=== PATIENT | female | born 1960 | race Caucasian/White ===

== ENCOUNTER → 2016-12-28 | Outpatient (CLI) | payer OTHER ==
[~2016-12-28] MED LIST: AMOXICILLIN500 MG PO; CIPRODEX 0.3%-7.5 ML OT; DIFLUCAN150 MG PO; FLEXERIL5 MG PO; MOTRIN800 MG PO; NAPROSYN500 MG PO; NO DAILY MEDS; PREDNISONE20 M1 PO; PROVENTIL0.09 MG/A1 INH; ROBAXIN750 MG PO; TRAMADOL HCL50 MG PO; TRIMOX500 MG PO; XANAX0.5 MG PO
== END | disposition home or self-care (01) ==
LOC: MAMMO 12-21 08:30
DX: Z12.31 Encounter for screening mammogram for malignant neoplasm of breast (principal)

== ENCOUNTER 2017-01-14 18:17 | Emergency (ER) | payer OTHER ==
[~2017-01-14] VITALS: Wt 77.1 kg
[2017-01-14] MEDS ORDERED: ALPRAZOLAM0.5 M3 PO (18:22)
[2017-01-14 18:53] LABS: BASO # 0.1 10*3/uL (0.0-0.1); BASO % 1.1 % (0.0-1.0); EOS # 0.5 10*3/uL (0.0-0.4); EOS % 4.8 % (1.0-4.0); HEMATOCRIT 37.8 % (37.0-47.0); HEMOGLOBIN 12.6 g/dl (12.0-16.0); LYMPH # 3.8 10*3/uL (1.3-4.4); LYMPH % 39.1 % (27.0-41.0); MEAN CELL VOLUME 90.6 fl (81.0-99.0); MEAN CORPUSCULAR HGB 30.2 pg (27.0-31.0); MEAN CORPUSCULAR HGB CONC 33.3 g/dl (33.0-37.0); MEAN PLATELET VOLUME 9.4 fl (9.6-12.3); MONO # 0.9 10*3/uL (0.1-1.0); MONO % 8.8 % (3.0-9.0); NEUT # 4.4 10*3/uL (2.3-7.9); NEUT % 45.8 % (47.0-73.0); PLATELET COUNT AUTOMATED 280 10*3/uL (130-400); RED BLOOD COUNT 4.17 10*6/uL (4.10-5.10); RED CELL DISTRI WIDTH 12.3 % (0-14.5); WHITE BLOOD COUNT 9.7 10*3/uL (4.8-10.8)
[2017-01-14 19:10] LABS: ALBUMIN 3.5 gm/dl (3.1-4.5); ALKALINE PHOSPHATASE 105 U/L (45-117); BILIRUBIN, TOTAL 0.2 mg/dl (0.2-1.0); BUN 19 mg/dl (7-24); CARBON DIOXIDE 22 mmol/L (21-32); CHLORIDE 110 mmol/L (98-107); EST GLOM FILT AFRICAN AMERICAN > 60 ml/min; GLUCOSE 151 mg/dL (65-99); POTASSIUM 3.5 mmol/L (3.5-5.1); SGOT/AST 18 IU/L (3-35); SGPT/ALT 24 U/L (12-78); SODIUM 145 mmol/L (136-145); TOTAL PROTEIN 6.9 gm/dL (6.4-8.2)
== END 2017-01-14 19:55 | disposition home or self-care (01) ==
LOC: ED 18:17
PROVIDERS: Emergency Medicine
DX: J06.9 Acute upper respiratory infection, unspecified (principal); F17.200 Nicotine dependence, unspecified, uncomplicated; Z79.899 Other long term (current) drug therapy

== ENCOUNTER 2018-03-29 06:54 | Emergency (ER) | payer OTHER ==
[~2018-03-29] VITALS: Ht 157.4 cm; Wt 74.8 kg
[~2018-03-29 06:54] MED LIST changes: +ALPRAZOLAM0.5 M3 PO
[2018-03-29] MEDS ORDERED: Motrin,Rufen800 MG PO (09:04)
== END 2018-03-29 09:03 | disposition home or self-care (01) ==
LOC: ED 06:54
DX: S63.602A Unspecified sprain of left thumb, initial encounter (principal); Z79.899 Other long term (current) drug therapy; Z90.49 Acquired absence of other specified parts of digestive tract; W01.0XXA Fall on same level from slipping, tripping and stumbling without subsequent striking against object, initial encounter; Y93.F9 Activity, other caregiving; Y92.095 Swimming-pool of other non-institutional residence as the place of occurrence of the external cause; Y99.8 Other external cause status

== ENCOUNTER 2018-06-24 18:01 | Emergency (ER) | payer OTHER ==
[~2018-06-24] VITALS: Ht 157.4 cm; Wt 77.1 kg
[~2018-06-24 18:01] MED LIST changes: +Motrin,Rufen800 MG PO
[2018-06-24] MEDS ORDERED: NORCO 5-325 TA1 EACH PO (18:24)
[2018-06-24] MEDS ORDERED: SILVADENE,SSD C50 GM T (18:24)
== END 2018-06-24 18:44 | disposition home or self-care (01) ==
LOC: ED 18:01
DX: T24.121A Burn of first degree of right knee, initial encounter (principal); T25.121A Burn of first degree of right foot, initial encounter; T25.122A Burn of first degree of left foot, initial encounter; F17.200 Nicotine dependence, unspecified, uncomplicated; Z79.899 Other long term (current) drug therapy; X12.XXXA Contact with other hot fluids, initial encounter; Y93.89 Activity, other specified; Y92.89 Other specified places as the place of occurrence of the external cause; Y99.8 Other external cause status

== ENCOUNTER 2018-10-25 07:02 | Inpatient (IN) | payer BC ==
[~2018-10-25] VITALS: Ht 157.5 cm; Wt 78.7 kg
--- NOTE | ~2018-10-25 | O ---
[place], [place] OPERATIVE NOTE NAME: JUDD VIGIL UNIT #: [id number] ROOM: 407 DOCTOR: IDA BOSTON,BENITO BIRTHDATE: [birth year] DOS: 10/26/2018 INDICATION: The patient has presented with abdominal pain, cramps, diarrhea, blood clots in the stool. PROCEDURE: Today's procedure part of investigation is colonoscopy plus biopsy. PREMEDICATION: Propofol. SCOPE: Olympus folding colonoscope 10L video. REPORT: After putting the patient in left lateral position, application of lubricant to the rectal pouch. Scope was introduced and advanced through the length of colon and transverse colon was approached moderate ischemic colitis was throughout the length of the transverse colon identified, photographed and biopsied of the mid ascending colon investigated. Air was suctioned out. The patient was extubated, tolerated the procedure well. IMPRESSION: Diverticulosis, ischemic colitis of moderate degree and transverse colon. PLAN AND DISCUSSION: Flagyl 500 mg IV t.i.d. will suffice Advised on abstaining from smoking, full liquid diet, clinical reassessment. BENITO PRIETO MD CM:OPRECORD:OPERATIVE NOTE [id number] BENITO PRIETO MD 10/31/18 1303 interface
--- NOTE | ~2018-10-25 | CON ---
[place], [place] REPORT OF CONSULTATION NAME: JUDD VIGIL UNIT #: [id number] ROOM: 407 DOCTOR: BENITO PRIETO MD BIRTHDATE: [birth year] DOS: HISTORY OF PRESENT ILLNESS: This is a 58-year-old patient who was presented with abdominal pain, cramp, sudden in nature, was admitted with noticing multiple bowel movements, which was associated with gross blood and clots. Lactic acid was 2.0. White blood cell was 15, H and H of [address] scan of the abdomen and pelvis was done. Colitis involving transverse colon was reported. Comprehensive metabolic panel, electrolyte, liver function tests all within normal limits. CBC differential continued to be reviewed. White blood cell elevated to 17. Urine cultures were not positive. PAST MEDICAL HISTORY: Anxiety, borderline obesity. PAST SURGICAL HISTORY: Appendectomy. SOCIAL HISTORY: Smoker, nonalcohol consumer. She initially has confessed to the interview she takes 4 cigarettes per day, but subsequently agreeing to me that she is at least taken a pack of cigarettes per day. FAMILY HISTORY: Noncontributory. ALLERGIES: No known medications. MEDICATIONS: Atarax and alprazolam. REVIEW OF SYSTEMS: In general: HEENT: Denies double vision, blurred vision. RESPIRATORY: Denies shortness of breath. CARDIOVASCULAR: Denies chest pain. DIGESTIVE SYSTEM: Blood per PM. PHYSICAL EXAMINATION: VITAL SIGNS: Stable. HEENT: Benign. Edentulous. Mouth free of aphthae ulcer, thrush. NECK: Supple, no thyromegaly, no cervical lymphadenopathy. CHEST: Symmetric anatomy, COPD pattern. HEART: Normal sinus rhythm, no gallop, no murmur. ABDOMEN: Soft. No hepato-organomegaly. Bowel sounds present. No pulsatile mass. EXTREMITIES: No cyanosis, no pedal edema. NEUROLOGIC: Alert, oriented to time, place, person. IMPRESSION: Lower gastrointestinal bleed, abdominal pain, cramp, blood in the stool, ruling out ischemic colitis. Other adjunctive diagnoses as outlined above. PLAN: Colonoscopy today. [place], [place] REPORT OF CONSULTATION NAME: JUDD VIGIL UNIT #: [id number] ROOM: 407 DOCTOR: JABENITO ZAMORA MD BIRTHDATE: [birth year] BENITO PRIETO MD CM:CONSTR:REPORT OF CONSULTATION 1646 10/27/18 0427 interface
[~2018-10-25 07:02] MED LIST changes: +NORCO 5-325 TA1 EACH PO; +SILVADENE,SSD C50 GM T
[2018-10-25 07:04] VITALS: BP 174/89
[2018-10-25 07:43] LABS: BASO # 0.1 10*3/uL (0.0-0.1); BASO % 0.8 % (0.0-1.0); EOS % 0.3 % (1.0-4.0); HEMATOCRIT 42.1 % (37.0-47.0); HEMOGLOBIN 14.3 g/dl (12.0-16.0); LYMPH # 2.3 10*3/uL (1.3-4.4); LYMPH % 15.3 % (27.0-41.0); MEAN CELL VOLUME 89.6 fl (81.0-99.0); MEAN CORPUSCULAR HGB 30.4 pg (27.0-31.0); MEAN PLATELET VOLUME 9.7 fl (9.6-12.3); MONO # 0.8 10*3/uL (0.1-1.0); MONO % 5.1 % (3.0-9.0); NEUT # 11.9 10*3/uL (2.3-7.9); NEUT % 78.1 % (47.0-73.0); PLATELET COUNT AUTOMATED 338 10*3/uL (130-400); RED CELL DISTRI WIDTH 12.3 % (0-14.5); WHITE BLOOD COUNT 15.2 10*3/uL (4.8-10.8)
[2018-10-25 07:46] LABS: BILIRUBIN NEGATIVE (NEGATIVE); BLOOD 2+ (NEGATIVE); CLARITY CLEAR (CLEAR); COLOR YELLOW (YELLOW); GLUCOSE NEGATIVE (NEGATIVE); KETONE NEGATIVE (NEGATIVE); LEUKO ESTERASE NEGATIVE (NEGATIVE); NITRITE NEGATIVE (NEGATIVE); SPECIFIC GRAVITY 1.015 (1.005-1.030); UROBILINOGEN 0.2 E.U./dl (0.2-1.0)
[2018-10-25 07:52] LABS: ACT PARTIAL THROMBO TIME 26.1 SECONDS (20.8-31.5); INTERNATIONAL NORM RATIO 0.9 (2.0-3.5)
[2018-10-25 07:55] LABS: RBC 21-30 rbc/hpf (0-2)
[2018-10-25 07:59] LABS: ALBUMIN 3.7 gm/dl (3.1-4.5); ALKALINE PHOSPHATASE 100 U/L (45-117); BUN 15 mg/dl (7-24); CHLORIDE 108 mmol/L (98-107); CREATININE 0.73 mg/dL (0.55-1.02); LIPASE 39 U/L (73-393); POTASSIUM 3.9 mmol/L (3.5-5.1); SGOT/AST 15 IU/L (3-35); SGPT/ALT 33 U/L (12-78); SODIUM 139 mmol/L (136-145); TOTAL PROTEIN 7.8 gm/dL (6.4-8.2)
[2018-10-25 10:05] VITALS: BP 156/85
--- NOTE | 2018-10-25 10:05 | NUR ---
Time: 1004 A 58 year old FEMALE admitted to under services of DR. ISAEL BRAUN FACGAVIN WALTERS MD,[place]. Pt. arrived via wheel chair from ER. Chief complaint: BLOODY DIARRHEA, COLITIS. XENA GRAHAM
[2018-10-25] MEDS ORDERED: ATARAX,VISTARIL50 MG PO (11:27)
--- NOTE | 2018-10-25 11:27 | NUR ---
MED REC UP TO DATE AT THIS TIME WITH PATIENT AND PHARMACY. DR. COLETTE PIPER.
[2018-10-25 12:00] VITALS: BP 156/85
[2018-10-25 16:00] VITALS: BP 140/71
--- NOTE | 2018-10-25 18:05 | NUR ---
PATIENT MEDICATED WITH MORPHINE AT THIS TIME FOR COMPLAINTS OF ABDOMINAL PAIN. WILL MONITOR FOR EFFECTIVENESS.
[2018-10-25 20:00] VITALS: BP 149/74
[2018-10-26] VITALS (9 sets, daily range): BP systolic 126–168; BP diastolic 61–84
[2018-10-26 06:39] LABS: ALBUMIN 3.5 gm/dl (3.1-4.5); ALKALINE PHOSPHATASE 90 U/L (45-117); BUN 8 mg/dl (7-24); CHLORIDE 106 mmol/L (98-107); CHOLESTEROL 199 mg/dL (<200); CREATININE 0.69 mg/dL (0.55-1.02); FREE T4 1.09 ng/dl (0.76-1.46); HDL CHOLESTEROL 49 mg/dl (40-60); LDL CHOLESTEROL 125 mg/dL (9-159); PHOSPHOROUS 3.2 mg/dL (2.5-4.9); POTASSIUM 3.8 mmol/L (3.5-5.1); SGOT/AST 15 IU/L (3-35); SGPT/ALT 26 U/L (12-78); SODIUM 138 mmol/L (136-145); TOTAL PROTEIN 7.3 gm/dL (6.4-8.2); TRIGLYCERIDES 126 mg/dl (<150); VLDL CHOLESTEROL 25 mg/dL (6-40)
[2018-10-26 06:57] LABS: ACT PARTIAL THROMBO TIME 26.2 SECONDS (20.8-31.5); INTERNATIONAL NORM RATIO 0.9 (2.0-3.5)
[2018-10-26 07:00] LABS: BASO # 0.1 10*3/uL (0.0-0.1); BASO % 0.7 % (0.0-1.0); EOS # 0.1 10*3/uL (0.0-0.4); EOS % 0.8 % (1.0-4.0); HEMATOCRIT 41.2 % (37.0-47.0); HEMOGLOBIN 13.9 g/dl (12.0-16.0); LYMPH # 4.5 10*3/uL (1.3-4.4); LYMPH % 25.4 % (27.0-41.0); MEAN CELL VOLUME 91.2 fl (81.0-99.0); MEAN CORPUSCULAR HGB 30.8 pg (27.0-31.0); MEAN CORPUSCULAR HGB CONC 33.7 g/dl (33.0-37.0); MEAN PLATELET VOLUME 10.4 fl (9.6-12.3); MONO # 1.2 10*3/uL (0.1-1.0); MONO % 6.9 % (3.0-9.0); NEUT # 11.6 10*3/uL (2.3-7.9); NEUT % 65.7 % (47.0-73.0); PLATELET COUNT AUTOMATED 340 10*3/uL (130-400); RED BLOOD COUNT 4.52 10*6/uL (4.10-5.10); RED CELL DISTRI WIDTH 12.4 % (0-14.5); WHITE BLOOD COUNT 17.7 10*3/uL (4.8-10.8)
[2018-10-26 07:39] LABS: VITAMIN D, 25-HYDROXY 12.7 ng/mL (30-100)
--- NOTE | 2018-10-26 08:24 | NUR ---
PHYSICIAN WAS NOTIFIED OF DR. PRIETO CONSULT. RESPONSE OF NOTIFICATION WAS GIVE ENEMA TODAY AT 1100 FOR COLONOSCOPY TODAY. TRACEY MCWILLIAMS
--- NOTE | 2018-10-26 09:00 | NUR ---
[employer] Supervisor in to talk to patient. Patient states lives at home with family. There are few steps in the home. Physician: jayan sosa [facility] Home health services: none Patient's level of ADLs: INDEPENDENT Patient has working utilities: all working DME: none Follow-up physician's appointment after d/c: will be made by hospitalist nurse director upon discharge Does patient want to access PORTAL?: no Discharge plan discussed with patient, patient lives at home with family, states she is independent in adls and ambulation, works, drives, patient states she will be going home when able and denies any home needs. CYRIL LIZAMA
[2018-10-27] VITALS: BP 141/58
[2018-10-27 07:22] LABS: BASO # 0.1 10*3/uL (0.0-0.1); BASO % 0.8 % (0.0-1.0); EOS # 0.2 10*3/uL (0.0-0.4); EOS % 0.9 % (1.0-4.0); HEMATOCRIT 39.7 % (37.0-47.0); HEMOGLOBIN 13.1 g/dl (12.0-16.0); LYMPH # 3.7 10*3/uL (1.3-4.4); LYMPH % 23.2 % (27.0-41.0); MEAN CELL VOLUME 89.8 fl (81.0-99.0); MEAN CORPUSCULAR HGB 29.6 pg (27.0-31.0); MEAN PLATELET VOLUME 10.3 fl (9.6-12.3); MONO % 6.3 % (3.0-9.0); NEUT # 10.9 10*3/uL (2.3-7.9); NEUT % 68.4 % (47.0-73.0); PLATELET COUNT AUTOMATED 313 10*3/uL (130-400); RED BLOOD COUNT 4.42 10*6/uL (4.10-5.10); RED CELL DISTRI WIDTH 12.1 % (0-14.5); WHITE BLOOD COUNT 15.9 10*3/uL (4.8-10.8)
[2018-10-27 08:00] VITALS: BP 144/80
[2018-10-27 12:00] VITALS: BP 126/65
[2018-10-27 16:00] VITALS: BP 139/78
[2018-10-27 20:00] VITALS: BP 134/68
--- NOTE | 2018-10-27 21:32 | NUR ---
24 HR chart check completed.
[2018-10-28] VITALS: BP 103/54; BP 130/70
[2018-10-28 06:34] LABS: ALBUMIN 2.9 gm/dl (3.1-4.5); BASO # 0.1 10*3/uL (0.0-0.1); CHLORIDE 112 mmol/L (98-107); EOS # 0.3 10*3/uL (0.0-0.4); EOS % 2.3 % (1.0-4.0); HEMATOCRIT 37.7 % (37.0-47.0); HEMOGLOBIN 12.1 g/dl (12.0-16.0); LYMPH # 3.6 10*3/uL (1.3-4.4); LYMPH % 30.2 % (27.0-41.0); MEAN CELL VOLUME 91.5 fl (81.0-99.0); MEAN CORPUSCULAR HGB 29.4 pg (27.0-31.0); MEAN CORPUSCULAR HGB CONC 32.1 g/dl (33.0-37.0); MEAN PLATELET VOLUME 10.3 fl (9.6-12.3); MONO # 0.9 10*3/uL (0.1-1.0); MONO % 7.3 % (3.0-9.0); NEUT % 58.8 % (47.0-73.0); PLATELET COUNT AUTOMATED 292 10*3/uL (130-400); POTASSIUM 3.9 mmol/L (3.5-5.1); RED BLOOD COUNT 4.12 10*6/uL (4.10-5.10); RED CELL DISTRI WIDTH 12.1 % (0-14.5); SODIUM 143 mmol/L (136-145); WHITE BLOOD COUNT 11.9 10*3/uL (4.8-10.8)
[2018-10-28 06:40] LABS: ALKALINE PHOSPHATASE 78 U/L (45-117); BUN 9 mg/dl (7-24); SGOT/AST 16 IU/L (3-35); SGPT/ALT 22 U/L (12-78); TOTAL PROTEIN 6.1 gm/dL (6.4-8.2)
[2018-10-28 08:00] VITALS: BP 134/72
[2018-10-28] MEDS ORDERED: VITAMIN D-32000 UNI1 PO (11:17)
[2018-10-28] MEDS ORDERED: CIPRO500 MG PO (11:17)
[2018-10-28] MEDS ORDERED: FLAGYL500 MG PO (11:17)
--- NOTE | 2018-10-28 12:25 | NUR ---
Discharge instructions reviewed with patient/family. Patient receptive and verbalizes understanding. Follow-up care arranged. Written instructions given to patient/family. WENT OVER DISCHARGE WITH PATIENT, STATES SHE WILL COME BACK TO BEHAVIORAL THERAPY COORDINATOR PRESCRIPTIONS FROM OUR PHARMACY. AWARE THAT PHARMACY CLOSES AT 7 PM. IV REMOVED, PATIENT TOLERATED WELL. ALL BELONGINGS WITH PATIENT AT THIS TIME. PATIENT DENIES THE NEED FOR A WHEELCHAIR. PATIENT AMBULATED OFF FLOOR AT THIS TIME ACCOMPANIED BY FAMILY. XENA GRAHAM E
== END 2018-10-28 12:25 | disposition home or self-care (01) | DRG 393 ==
LOC: ED 07:02 → EDHOLD 08:55 → 4E 08:55 → EDHOLD 09:07 → 4E 09:33
PROVIDERS: Emergency Medicine; Family Medicine; Registered Nurse; ADMIT Internal Medicine
PROC: 0DBK8ZX Excision of Ascending Colon, Via Natural or Artificial Opening Endoscopic, Diagnostic (ICD-10-PCS; principal; 2018-10-26)
DX: K55.9 Vascular disorder of intestine, unspecified (principal); K57.91 Diverticulosis of intestine, part unspecified, without perforation or abscess with bleeding; E87.8 Other disorders of electrolyte and fluid balance, not elsewhere classified; R73.9 Hyperglycemia, unspecified; R31.9 Hematuria, unspecified; F17.210 Nicotine dependence, cigarettes, uncomplicated; E66.9 Obesity, unspecified; F41.1 Generalized anxiety disorder; G47.00 Insomnia, unspecified; D72.829 Elevated white blood cell count, unspecified; E55.9 Vitamin D deficiency, unspecified; Z71.6 Tobacco abuse counseling; Z90.49 Acquired absence of other specified parts of digestive tract; Z80.1 Family history of malignant neoplasm of trachea, bronchus and lung; Z79.899 Other long term (current) drug therapy; Z68.31 Body mass index [BMI] 31.0-31.9, adult

== ENCOUNTER 2019-04-04 11:36 | Emergency (ER) | payer BC ==
[~2019-04-04] VITALS: Ht 157.4 cm; Wt 75.7 kg
[~2019-04-04 11:36] MED LIST changes: +ATARAX,VISTARIL50 MG PO; +CIPRO500 MG PO; +FLAGYL500 MG PO; +VITAMIN D-32000 UNI1 PO
[2019-04-04 12:13] LABS: BASO # 0.2 10*3/uL (0.0-0.1); BASO % 1.5 % (0.0-1.0); EOS # 0.1 10*3/uL (0.0-0.4); EOS % 1.4 % (1.0-4.0); HEMATOCRIT 38.7 % (37.0-47.0); HEMOGLOBIN 12.9 g/dl (12.0-16.0); LYMPH # 3.8 10*3/uL (1.3-4.4); LYMPH % 38.2 % (27.0-41.0); MEAN CELL VOLUME 90.8 fl (81.0-99.0); MEAN CORPUSCULAR HGB 30.3 pg (27.0-31.0); MEAN CORPUSCULAR HGB CONC 33.3 g/dl (33.0-37.0); MEAN PLATELET VOLUME 9.5 fl (9.6-12.3); MONO # 0.6 10*3/uL (0.1-1.0); NEUT # 5.2 10*3/uL (2.3-7.9); NEUT % 52.3 % (47.0-73.0); PLATELET COUNT AUTOMATED 375 10*3/uL (130-400); RED BLOOD COUNT 4.26 10*6/uL (4.10-5.10); RED CELL DISTRI WIDTH 12.7 % (0-14.5)
[2019-04-04 12:28] LABS: ALBUMIN 3.7 gm/dl (3.1-4.5); ALKALINE PHOSPHATASE 97 U/L (45-117); BUN 10 mg/dl (7-24); CHLORIDE 107 mmol/L (98-107); CREATININE 0.58 mg/dL (0.55-1.02); POTASSIUM 3.9 mmol/L (3.5-5.1); SGOT/AST 12 IU/L (3-35); SGPT/ALT 24 U/L (12-78); SODIUM 140 mmol/L (136-145); TOTAL PROTEIN 7.5 gm/dL (6.4-8.2)
[2019-04-04 12:38] LABS: INTERNATIONAL NORM RATIO 0.9 (2.0-3.5)
[2019-04-04] MEDS ORDERED: ANTIBIOTIC28.4 GM T (15:00)
[2019-04-04] MEDS ORDERED: DOXYCYCLINE100 M3 PO (15:00)
== END 2019-04-04 15:10 | disposition home or self-care (01) ==
LOC: ED 11:36
PROVIDERS: Nurse Practitioner Family
DX: L03.115 Cellulitis of right lower limb (principal); F17.200 Nicotine dependence, unspecified, uncomplicated; Z48.02 Encounter for removal of sutures

== ENCOUNTER → 2019-08-30 | Outpatient (CLI) | payer BC ==
[~2019-08-30] MED LIST changes: +ANTIBIOTIC28.4 GM T; +DOXYCYCLINE100 M3 PO
[2019-08-30 10:38] LABS: BILIRUBIN NEGATIVE (NEGATIVE); CLARITY SL CLOUDY (CLEAR); COLOR YELLOW (YELLOW); GLUCOSE NEGATIVE (NEGATIVE); KETONE NEGATIVE (NEGATIVE)
[2019-08-30 10:39] LABS: BLOOD TRACE-INTACT (NEGATIVE); LEUKO ESTERASE NEGATIVE (NEGATIVE); NITRITE NEGATIVE (NEGATIVE); PH 6.5 (5.0-9.0); SPECIFIC GRAVITY 1.005 (1.005-1.030); UROBILINOGEN 0.2 E.U./dl (0.2-1.0)
[2019-08-30 10:40] LABS: BASO # 0.1 10*3/uL (0.0-0.1); BASO % 1.5 % (0.0-1.0); EOS # 0.2 10*3/uL (0.0-0.4); EOS % 2.1 % (1.0-4.0); HEMATOCRIT 42.9 % (37.0-47.0); LYMPH # 3.6 10*3/uL (1.3-4.4); LYMPH % 43.4 % (27.0-41.0); MEAN CELL VOLUME 89.9 fl (81.0-99.0); MEAN CORPUSCULAR HGB 29.4 pg (27.0-31.0); MEAN CORPUSCULAR HGB CONC 32.6 g/dl (33.0-37.0); MEAN PLATELET VOLUME 10.3 fl (9.6-12.3); MONO # 0.6 10*3/uL (0.1-1.0); MONO % 6.7 % (3.0-9.0); NEUT # 3.8 10*3/uL (2.3-7.9); NEUT % 45.9 % (47.0-73.0); PLATELET COUNT AUTOMATED 341 10*3/uL (130-400); RED BLOOD COUNT 4.77 10*6/uL (4.10-5.10); RED CELL DISTRI WIDTH 12.3 % (0-14.5); RETICULOCYTE % 1.46 % (0.50-2.50); WHITE BLOOD COUNT 8.2 10*3/uL (4.8-10.8)
[2019-08-30 10:48] LABS: BACTERIA TRACE; RBC 0-2 rbc/hpf (0-2); WBC 0-2 wbc/hpf (0-5)
[2019-08-30 11:08] LABS: ALBUMIN 3.9 gm/dl (3.1-4.5); ALKALINE PHOSPHATASE 107 U/L (45-117); BUN 14 mg/dl (7-24); CHLORIDE 110 mmol/L (98-107); CHOLESTEROL 222 mg/dL (<200); CREATININE 0.72 mg/dL (0.55-1.02); GAMMA GLUTAMYL TRANSPEPTIDASE 25 U/L (5-55); HDL CHOLESTEROL 51 mg/dl (40-60); IRON 70 ug/dL (50-170); LDL CHOLESTEROL 148 mg/dL (9-159); POTASSIUM 4.4 mmol/L (3.5-5.1); SGOT/AST 15 IU/L (3-35); SGPT/ALT 29 U/L (12-78); SODIUM 139 mmol/L (136-145); TOTAL IRON BINDING CAPACITY 332 ug/dl (250-450); TRIGLYCERIDES 113 mg/dl (<150); VLDL CHOLESTEROL 23 mg/dL (6-40)
[2019-08-30 11:15] LABS: TOTAL PROTEIN 7.5 gm/dL (6.4-8.2)
[2019-08-30 11:33] LABS: FERRITIN 91.3 ng/mL (10.0-291.0)
== END | disposition home or self-care (01) ==
LOC: LAB 09:37
PROVIDERS: Family Medicine
DX: E78.5 Hyperlipidemia, unspecified (principal); E55.9 Vitamin D deficiency, unspecified; R79.89 Other specified abnormal findings of blood chemistry; R53.83 Other fatigue

== ENCOUNTER → 2021-02-04 | Outpatient (CLI) | payer BC ==
[2021-02-04 14:18] LABS: BASO # 0.1 10*3/uL (0.0-0.1); BASO % 0.9 % (0.0-1.0); EOS # 0.2 10*3/uL (0.0-0.4); EOS % 1.9 % (1.0-4.0); HEMATOCRIT 39.3 % (37.0-47.0); LYMPH # 3.6 10*3/uL (1.3-4.4); LYMPH % 40.2 % (27.0-41.0); MEAN CELL VOLUME 89.3 fl (81.0-99.0); MEAN CORPUSCULAR HGB CONC 33.6 g/dl (33.0-37.0); MEAN PLATELET VOLUME 10.2 fl (9.6-12.3); MONO # 0.7 10*3/uL (0.1-1.0); MONO % 7.8 % (3.0-9.0); NEUT # 4.3 10*3/uL (2.3-7.9); PLATELET COUNT AUTOMATED 319 10*3/uL (130-400); RETICULOCYTE % 1.59 % (0.50-2.50); WHITE BLOOD COUNT 8.8 10*3/uL (4.8-10.8)
[2021-02-04 14:19] LABS: BILIRUBIN Negative (Negative); BLOOD Negative (Negative); CLARITY Clear (Clear); COLOR Yellow (Yellow); GLUCOSE Negative (Negative); KETONE Negative (Negative); LEUKO ESTERASE Negative (Negative); NITRITE Negative (Negative); PH 7.5 (4.5-8.0)
[2021-02-04 14:24] LABS: RBC 0-2 rbc/hpf (0-2); WBC 0-2 wbc/hpf (0-5)
[2021-02-04 14:25] LABS: BACTERIA TRACE
[2021-02-04 14:47] LABS: ALBUMIN 3.8 gm/dl (3.1-4.5); ALKALINE PHOSPHATASE 84 U/L (45-117); BUN 11 mg/dl (7-24); CHLORIDE 109 mmol/L (98-107); CHOLESTEROL 199 mg/dL (<200); CREATININE 0.69 mg/dL (0.55-1.02); GAMMA GLUTAMYL TRANSPEPTIDASE 15 U/L (5-55); IRON 80 ug/dL (50-170); LDL CHOLESTEROL 127 mg/dL (9-159); POTASSIUM 3.8 mmol/L (3.5-5.1); SGOT/AST 15 IU/L (3-35); SGPT/ALT 26 U/L (12-78); SODIUM 139 mmol/L (136-145); TOTAL IRON BINDING CAPACITY 332 ug/dl (250-450); TOTAL PROTEIN 7.3 gm/dL (6.4-8.2); TRIGLYCERIDES 119 mg/dl (<150)
[2021-02-04 14:54] LABS: VITAMIN D, 25-HYDROXY 25.5 ng/mL (30-100)
[2021-02-04 14:55] LABS: FERRITIN 70.4 ng/mL (10.0-291.0)
== END | disposition home or self-care (01) ==
LOC: LAB 13:44
PROVIDERS: ATTEND Family Medicine
DX: E55.9 Vitamin D deficiency, unspecified (principal); R79.89 Other specified abnormal findings of blood chemistry; R53.83 Other fatigue; E78.5 Hyperlipidemia, unspecified; R74.8 Abnormal levels of other serum enzymes

== ENCOUNTER 2021-03-24 14:23 | Emergency (ER) | payer BC ==
[~2021-03-24] VITALS: Wt 77.1 kg
[2021-03-24] MEDS ORDERED: KENALOG 0.025%15 GM T (17:39)
[2021-03-24] MEDS ORDERED: VISTARIL25 MG PO (17:39)
[2021-03-24] MEDS ORDERED: PREDNISONE20 M1 PO (17:39)
== END 2021-03-24 17:49 | disposition home or self-care (01) ==
LOC: ED 14:23
DX: L25.9 Unspecified contact dermatitis, unspecified cause (principal); F17.210 Nicotine dependence, cigarettes, uncomplicated

== ENCOUNTER 2021-08-17 06:32 | Emergency (ER) | payer OTHER ==
[~2021-08-17] VITALS: Ht 157.4 cm; Wt 77.1 kg
[~2021-08-17 06:32] MED LIST changes: +KENALOG 0.025%15 GM T; +VISTARIL25 MG PO
== END 2021-08-17 09:48 | disposition home or self-care (01) ==
LOC: ED 06:32
DX: S93.401A Sprain of unspecified ligament of right ankle, initial encounter (principal); S30.0XXA Contusion of lower back and pelvis, initial encounter; F17.210 Nicotine dependence, cigarettes, uncomplicated; Z79.2 Long term (current) use of antibiotics; Z79.899 Other long term (current) drug therapy; Z90.49 Acquired absence of other specified parts of digestive tract; W00.0XXA Fall on same level due to ice and snow, initial encounter; Y93.01 Activity, walking, marching and hiking; Y92.89 Other specified places as the place of occurrence of the external cause; Y99.0 Civilian activity done for income or pay

== ENCOUNTER → 2022-01-03 | Outpatient (CLI) | payer OTHER ==
[2022-01-03 08:57] LABS: BASO # 0.1 10*3/uL (0.0-0.1); BASO % 1.1 % (0.0-1.0); EOS # 0.2 10*3/uL (0.0-0.4); EOS % 2.1 % (1.0-4.0); HEMATOCRIT 41.7 % (37.0-47.0); LYMPH # 2.9 10*3/uL (1.3-4.4); LYMPH % 32.7 % (27.0-41.0); MEAN CELL VOLUME 89.9 fl (81.0-99.0); MEAN CORPUSCULAR HGB 30.2 pg (27.0-31.0); MEAN CORPUSCULAR HGB CONC 33.6 g/dl (33.0-37.0); MEAN PLATELET VOLUME 9.7 fl (9.6-12.3); MONO # 0.7 10*3/uL (0.1-1.0); MONO % 8.1 % (3.0-9.0); NEUT # 4.9 10*3/uL (2.3-7.9); NEUT % 55.3 % (47.0-73.0); PLATELET COUNT AUTOMATED 323 10*3/uL (130-400); RED BLOOD COUNT 4.64 10*6/uL (4.10-5.10); RED CELL DISTRI WIDTH 12.4 % (0-14.5); RETICULOCYTE % 1.96 % (0.50-2.50); WHITE BLOOD COUNT 8.8 10*3/uL (4.8-10.8)
[2022-01-03 08:58] LABS: BILIRUBIN Negative (Negative); BLOOD Negative (Negative); CLARITY Clear (Clear); COLOR Yellow (Yellow); GLUCOSE Negative (Negative); KETONE Trace (Negative); LEUKO ESTERASE Negative (Negative); NITRITE Negative (Negative); SPECIFIC GRAVITY 1.025 (1.001-1.030)
[2022-01-03 09:13] LABS: ALKALINE PHOSPHATASE 97 U/L (45-117); BUN 15 mg/dl (7-24); CHLORIDE 112 mmol/L (98-107); CHOLESTEROL 127 mg/dL (<200); CREATININE 0.59 mg/dL (0.55-1.02); GAMMA GLUTAMYL TRANSPEPTIDASE 28 U/L (5-55); IRON 46 ug/dL (50-170); LDL CHOLESTEROL 65 mg/dL (9-159); POTASSIUM 4.3 mmol/L (3.5-5.1); SGOT/AST 9 IU/L (3-35); SGPT/ALT 22 U/L (12-78); SODIUM 141 mmol/L (136-145); TOTAL IRON BINDING CAPACITY 334 ug/dl (250-450); TRIGLYCERIDES 41 mg/dl (<150)
[2022-01-03 10:13] LABS: WBC 0-2 wbc/hpf (0-5)
[2022-01-03 10:20] LABS: VITAMIN D, 25-HYDROXY 35.3 ng/mL (30-100)
[2022-01-03 10:22] LABS: BACTERIA 1+
[2022-01-03 10:23] LABS: YEAST TRACE
[2022-01-04 04:06] LABS: RHEUMATOID FACTOR <10.0 IU/mL (<14.0)
[2022-01-04 14:08] LABS: ANTI-DSDNA ANTIBODIES <1 IU/mL (0-9)
== END | disposition home or self-care (01) ==
LOC: LAB 08:33
PROVIDERS: ATTEND Family Medicine
DX: E55.9 Vitamin D deficiency, unspecified (principal); R79.89 Other specified abnormal findings of blood chemistry; R53.83 Other fatigue; E78.5 Hyperlipidemia, unspecified; R74.8 Abnormal levels of other serum enzymes

== ENCOUNTER → 2022-12-01 | Outpatient (CLI) | payer OTHER ==
[2022-12-01 09:43] LABS: BASO # 0.2 10*3/uL (0.0-0.1); BASO % 1.7 % (0.0-1.0); EOS # 0.1 10*3/uL (0.0-0.4); EOS % 1.5 % (1.0-4.0); HEMATOCRIT 43.8 % (37.0-47.0); LYMPH # 3.6 10*3/uL (1.3-4.4); LYMPH % 37.8 % (27.0-41.0); MEAN CELL VOLUME 90.5 fl (81.0-99.0); MEAN CORPUSCULAR HGB 29.8 pg (27.0-31.0); MEAN CORPUSCULAR HGB CONC 32.9 g/dl (33.0-37.0); MEAN PLATELET VOLUME 9.6 fl (9.6-12.3); MONO # 0.7 10*3/uL (0.1-1.0); MONO % 7.6 % (3.0-9.0); NEUT # 4.8 10*3/uL (2.3-7.9); NEUT % 51.2 % (47.0-73.0); PLATELET COUNT AUTOMATED 322 10*3/uL (130-400); RED BLOOD COUNT 4.84 10*6/uL (4.10-5.10); RED CELL DISTRI WIDTH 12.1 % (0-14.5); RETICULOCYTE % 1.68 % (0.50-2.50); WHITE BLOOD COUNT 9.4 10*3/uL (4.8-10.8)
[2022-12-01 09:43] LABS: BILIRUBIN Negative (Negative); BLOOD Trace-Intact (Negative); CLARITY Clear (Clear); COLOR Yellow (Yellow); GLUCOSE Negative (Negative); KETONE Negative (Negative); LEUKO ESTERASE Negative (Negative); NITRITE Negative (Negative); PH 6.5 (4.5-8.0); SPECIFIC GRAVITY <= 1.005 (1.001-1.030); UROBILINOGEN 0.2 E.U./dl (0.0-1.0)
[2022-12-01 10:09] LABS: ALKALINE PHOSPHATASE 102 U/L (46-116); BUN 10 mg/dl (9-23); CHLORIDE 106 mmol/L (98-107); CHOLESTEROL 144 mg/dL (<200); GAMMA GLUTAMYL TRANSPEPTIDASE 23 U/L (0-73); LDL CHOLESTEROL 82 mg/dL (9-159); POTASSIUM 4.4 mmol/L (3.4-5.1); SGPT/ALT 15 U/L (10-49); T3 UPTAKE 22.6 % (22.4-36.7); THYROID STIM HORMONE (HS) 1.674 uIU/ml (0.550-4.780); THYROXINE (T4) TOTAL 6.9 ug/dl (4.5-10.9); TOTAL PROTEIN 7.6 gm/dL (6.0-8.0); TRIGLYCERIDES 88 mg/dl (<150)
[2022-12-01 10:45] LABS: VITAMIN D, 25-HYDROXY 43.3 ng/mL (30-100)
== END | disposition home or self-care (01) ==
LOC: LAB 09:07
PROVIDERS: ATTEND Family Medicine
DX: E78.5 Hyperlipidemia, unspecified (principal); E55.9 Vitamin D deficiency, unspecified; R79.89 Other specified abnormal findings of blood chemistry; R53.83 Other fatigue; R74.8 Abnormal levels of other serum enzymes

== ENCOUNTER → 2023-01-03 | Outpatient (CLI) | payer OTHER ==
[2023-01-03 08:06] LABS: BILIRUBIN Negative (Negative); BLOOD Trace-Lysed (Negative); CLARITY Clear (Clear); COLOR Yellow (Yellow); GLUCOSE Negative (Negative); KETONE Negative (Negative); LEUKO ESTERASE Negative (Negative); NITRITE Negative (Negative); PH 6.5 (4.5-8.0); SPECIFIC GRAVITY 1.015 (1.001-1.030); UROBILINOGEN 0.2 E.U./dl (0.0-1.0)
[2023-01-03 08:49] LABS: BACTERIA 1+; EPITHELIAL CELLS 21-30; WBC 0-2 wbc/hpf (0-5)
== END | disposition home or self-care (01) ==
LOC: LAB 07:13
PROVIDERS: ATTEND Family Medicine
DX: E78.5 Hyperlipidemia, unspecified (principal); R79.89 Other specified abnormal findings of blood chemistry; R53.83 Other fatigue; R39.198 Other difficulties with micturition

== ENCOUNTER → 2023-01-05 | Outpatient (CLI) | payer OTHER | END | disposition home or self-care (01) | LOC: RAD 16:00 | PROVIDERS: ATTEND Nurse Practitioner Family | DX: M25.472 Effusion, left ankle (principal) ==

== ENCOUNTER → 2024-04-15 | Outpatient (CLI) | payer OTHER | END | disposition home or self-care (01) | LOC: RAD 12:38 | PROVIDERS: ATTEND Family Medicine | DX: M19.041 Primary osteoarthritis, right hand (principal); M85.841 Other specified disorders of bone density and structure, right hand ==

== ENCOUNTER 2025-06-08 15:54 | Emergency (ER) | payer SELFPAY ==
[~2025-06-08] VITALS: Ht 157.4 cm; Wt 77.1 kg
[2025-06-08] MEDS ORDERED: CITALOPRAM40 MG PO (16:03)
[2025-06-08] MEDS ORDERED: CITALOPRAM10 MG PO (16:03)
[2025-06-08] MEDS ORDERED: ATORVASTATIN CA20 M1 PO (16:03)
[2025-06-08] MEDS ORDERED: ASPIRIN CHEWABL81 MG PO (16:06)
[2025-06-08] MEDS ORDERED: CEPHALEXIN500 M1 PO (16:45)
[2025-06-08] MEDS ORDERED: MUPIROCIN 15 GM TUBE T ONE (16:45)
[2025-06-08] MEDS ORDERED: CEPHALEXIN 500 MG CAP PO ONE ×2 (16:45→17:09)
[2025-06-08] MEDS ORDERED: Bactroban Oint22 GM T (16:45)
[2025-06-08] MEDS ORDERED: diphenhydrAMINE hydrochloride 25 MG CAP PO ONE ×2 (16:45→17:09)
[2025-06-08] MEDS ORDERED: MUPIROCIN 15 GM TUBE ONE (17:10)
== END 2025-06-08 16:58 | disposition home or self-care (01) ==
LOC: ED 15:54
DX: T22.511A Corrosion of first degree of right forearm, initial encounter (principal); T32.0 Corrosions involving less than 10% of body surface; E66.9 Obesity, unspecified; Y93.89 Activity, other specified; Z87.891 Personal history of nicotine dependence; Z68.30 Body mass index [BMI] 30.0-30.9, adult; Z90.49 Acquired absence of other specified parts of digestive tract; Z79.82 Long term (current) use of aspirin; Z79.899 Other long term (current) drug therapy; Y92.89 Other specified places as the place of occurrence of the external cause; Y99.8 Other external cause status